=== PATIENT | male | born 1965 | race Caucasian/White ===

== ENCOUNTER 2017-06-24 09:46 | Emergency (ER) | payer SELFPAY ==
[~2017-06-24] VITALS: Ht 175.3 cm; Wt 52.6 kg
[2017-06-24] MEDS ORDERED: NAPROXEN 500 MG TABLET (09:58)
[2017-06-24] MEDS ORDERED: IBUPROFEN TAB 600MG (09:58)
[2017-06-24] MEDS ORDERED: FAMOTIDINE 20 MG (09:58)
[2017-06-24] MEDS ORDERED: ZOLPIDEM TARTRATE 10 MG TABLET (09:58)
[2017-06-24] MEDS ORDERED: [UNRECOGNIZED DRUG - REMARK] (09:59)
[2017-06-24] MEDS ORDERED: [UNRECOGNIZED DRUG - OTHER] (09:59)
--- NOTE | 2017-06-24 10:00 | NUR ---
dr benítez at the bedside for eval and exam.
[2017-06-24 10:21] LABS: BASOPHILS % (AUTO) 0.6 % (0.0-2.0); EOSINOPHILS # (AUTO) 0.1 K/uL (0.0-0.7); EOSINOPHILS % (AUTO) 2.2 % (0.0-7.0); HEMATOCRIT 44.5 % (36.7-47.1); HEMOGLOBIN 15.3 g/dL (12.5-16.3); LYMPHOCYTES % (AUTO) 15.5 % (20.5-51.5); MEAN CORPUSCULAR HEMOGLOBIN 31.2 uug (23.8-33.4); MEAN CORPUSCULAR HGB CONC 34 g/dL (32.5-36.3); MEAN CORPUSCULAR VOLUME 90.8 fL (73.0-96.2); MONOCYTES # (AUTO) 0.6 K/uL (2.0-10.0); MONOCYTES % (AUTO) 8.8 % (0.0-11.0); NEUTROPHILS # (AUTO) 4.7 K/uL (1.8-8.9); NEUTROPHILS % (AUTO) 72.9 % (38.5-71.5); PLATELET COUNT (AUTO) 299 K/uL (152-348); WHITE BLOOD COUNT (AUTO) 6.5 K/uL (3.6-10.2)
[2017-06-24 10:37] LABS: CREATININE 0.7 mg/dL (0.6-1.3); POTASSIUM 4.4 mmol/L (3.5-5.1)
[2017-06-24 10:42] LABS: BILIRUBIN,TOTAL 0.4 mg/dL (0.2-1.0); TOTAL PROTEIN, SERUM 7.7 g/dL (6.4-8.2)
[2017-06-24 11:51] LABS: *BILIRUBIN,URIN NEGATIVE (NEGATIVE); *BLOOD, URINE 1+ (NEGATIVE); *CLARITY,URINE CLEAR (CLEAR); *COLOR,URINE YELLOW (YELLOW); *KETONES,URINE NEGATIVE (NEGATIVE); *PROTEIN,URINE TRACE (NEGATIVE); *UROBILINOGEN,URINE 0.2 E.U./dl (NORMAL); LEUKOCYTE ESTERASE ,URINE NEGATIVE (NEGATIVE); NITRITE, URINE NEGATIVE (NEGATIVE); PH,URINE 5.5 (5.0-8.0); UGLUCOSE NEGATIVE (NEGATIVE)
--- NOTE | 2017-06-24 11:56 | NUR ---
Pt walking w/ steady gait in/out of room.
[2017-06-24] MEDS: HYDROCODONE/APAP 7.5-325MG TABLET PO PRN (11:58)
[2017-06-24 11:59] LABS: BACTERIA,URINE NONE SEEN /HPF (NONE SEEN); RBC,URINE 0-3 /HPF (0-3); SQUAMOUS EPITHELIAL CELL,UR NONE SEEN /HPF (NONE SEEN); WBC,URINE 0-3 /HPF (0-3)
[2017-06-24] MEDS ORDERED: HYDROCODONE/APAP 7.5-325MG TABLET ONE (12:09)
--- NOTE | 2017-06-24 12:37 | NUR ---
Patient discharged to home in stable conditon. Written and verbal after care instructions given. Patient verbalizes understanding of instructions. Pt left Er w/ steady gait.
[2017-06-24 12:38] VITALS: BP 100/66
== END 2017-06-24 12:39 | disposition home or self-care (01) ==
LOC: ER 09:48
DX: M60.9 Myositis, unspecified (principal); R31.9 Hematuria, unspecified; G35 Multiple sclerosis; K92.1 Melena; R07.89 Other chest pain
CPT/HCPCS: 36415; 71010; 80053; 81001; 85025; 85610; 99285; A4663